=== PATIENT | female | born 1985 | race Caucasian/White ===

== ENCOUNTER 2018-06-22 12:55 | Emergency (ER) | payer SELFPAY ==
[2018-06-22 13:33] LABS: BASO % 0.5 % (0.0-2.0); EOS # 0.5 (0.0-0.7); GRAN # 4.4 (1.4-6.5); GRAN % 52.3 % (42.2-75.2); HEMOGLOBIN 11.7 g/dl (12.5-16.0); LYMPH # 2.8 (1.2-3.4); MEAN CELL VOLUME 87 fl (80.0-100.0); MEAN CORPUSCULAR HEMOGLOBIN 29 pg (27.0-31.0); MEAN CORPUSCULAR HGB CONC 33 g/dl (33.0-37.0); MEAN PLATELET VOLUME 10.1 fl (7.4-10.4); MONO # 0.7 (0.1-0.6); MONO % 8.1 % (1.7-9.3); PLATELET COUNT 278 K/mm3 (130-400); RED BLOOD COUNT 4.03 M/mm3 (4.10-5.30)
[2018-06-22 13:35] LABS: HEMATOCRIT 35.1 % (37.0-47.0)
[2018-06-22 13:38] LABS: PROTHROMBIN TIME 11.7 SECONDS (9.7-12.8)
[2018-06-22 13:45] LABS: ALANINE AMINOTRANSFERASE 28 U/L (9-52); ALBUMIN 3.9 gm/dL (3.5-5.0); ALKALINE PHOSPHATASE 72 U/L (50-136); ANION GAP 6 mmol/L (7-16); AST,SGOT 21 U/L (15-37); BILIRUBIN,TOTAL 1.1 mg/dL (0.0-1.0); BLOOD UREA NITROGEN 11 mg/dL (7-17); CALCIUM 8.8 mg/dL (8.4-10.2); CARBON DIOXIDE 26 mmol/L (22-30); CHLORIDE 105 mmol/L (98-107); CREATININE, serum 0.89 mg/dL (0.52-1.25); GLUCOSE 78 mg/dL (74-106); POTASSIUM 3.9 mmol/L (3.4-5.0); SODIUM 137 mmol/L (137-145); TOTAL PROTEIN 7.1 gm/dL (6.4-8.2)
[2018-06-22 13:58] LABS: TROPONIN-I < 0.012 ng/mL (0.000-0.034)
[2018-06-22 14:20] VITALS: BP 116/50; TEMP 97.5
[2018-06-22 16:40] VITALS: PULSE 89
== END 2018-06-22 16:40 | disposition home or self-care (01) ==
LOC: COL.ER 12:55
PROVIDERS: Emergency Medicine
DX: R51 Headache (principal)
CPT/HCPCS: J1200; J2765; J3010; Q9967

== ENCOUNTER → 2021-11-13 | Outpatient (CLI) | payer SELFPAY | LOC: COL.RAD 16:26 | DX: G43.009 Migraine without aura, not intractable, without status migrainosus (principal) ==

== ENCOUNTER 2022-10-25 10:54 | Emergency (ER) | payer SELFPAY ==
[~2022-10-25] VITALS: Ht 160 cm; Wt 70.5 kg
[2022-10-25 11:46] LABS: COLLECTION METHOD CLEAN CATCH
[2022-10-25 11:52] LABS: BASO % 0.4 % (0.0-2.0); EOS # 0.1 K/mm3 (0.0-0.7); EOS % 1.4 % (0.0-4.0); GRAN # 6.4 K/mm3 (1.4-6.5); GRAN % 82.5 % (42.2-75.2); HEMATOCRIT 39.3 % (37.0-47.0); HEMOGLOBIN 13.3 g/dl (12.5-16.0); LYMPH # 0.8 K/mm3 (1.2-3.4); LYMPH % 10.1 % (20.0-51.0); MEAN CELL VOLUME 90 fl (80.0-100.0); MEAN CORPUSCULAR HEMOGLOBIN 31 pg (27-31); MEAN CORPUSCULAR HGB CONC 34 g/dl (33.0-37.0); MEAN PLATELET VOLUME 9.7 fl (7.4-10.4); MONO # 0.4 K/mm3 (0.1-0.6); MONO % 5.3 % (1.7-9.3); PLATELET COUNT 273 K/mm3 (130-400); RED BLOOD COUNT 4.35 M/mm3 (4.10-5.30)
[2022-10-25 11:55] LABS: MUCOUS Present (NOT PRESENT); PH 5.5 (5.0-8.5); SQUAMOUS EPITHELIAL >50 /hpf (0-10); URINE APPEARANCE Cloudy (CLEAR/HAZY); URINE BACTERIA Rare /hpf (NONE SEEN); URINE COLOR Yellow (YELLOW); URINE GLUCOSE Negative (NEGATIVE); URINE PROTEIN(semi-quant) 1+ (NEGATIVE)
[2022-10-25 11:56] LABS: URINE BLOOD 2+ (NEGATIVE); URINE KETONE TRACE (NEGATIVE); URINE NITRATE Negative (NEGATIVE); URINE UROBILINOGEN 0.2 E.U/dL (0.2-1.0)
[2022-10-25 12:16] LABS: ALBUMIN 3.5 gm/dL (3.5-5.0); BILIRUBIN,TOTAL 0.8 mg/dL (0.2-1.2); CREATININE, serum 0.71 mg/dL (0.57-1.11); POTASSIUM 3.6 mmol/L (3.5-4.5); TOTAL PROTEIN 7.1 gm/dL (6.2-8.1)
[2022-10-25] MEDS ORDERED: NORCO 325 MG-51 TAB PO (13:18)
[2022-10-25] MEDS ORDERED: AMOXICILLIN 8751 TAB PO (13:18)
[2022-10-25] MEDS ORDERED: ZOFRAN ODT4 MG PO (13:18)
[2022-10-25 13:43] VITALS: BP 114/82; PULSE 92; TEMP 98
== END 2022-10-25 13:41 | disposition home or self-care (01) ==
LOC: COL.ER 10:54
PROVIDERS: Emergency Medicine
DX: K52.9 Noninfective gastroenteritis and colitis, unspecified (principal); D28.2 Benign neoplasm of uterine tubes and ligaments; R03.1 Nonspecific low blood-pressure reading
CPT/HCPCS: J1170; J2270; J2405; J7030; Q9967

== ENCOUNTER 2022-10-27 21:54 | Emergency (ER) | payer SELFPAY ==
[~2022-10-27] VITALS: Ht 160 cm; Wt 70.5 kg
[~2022-10-27 21:54] MED LIST: AMOXICILLIN 8751 TAB PO; NORCO 325 MG-51 TAB PO; ZOFRAN ODT4 MG PO
[2022-10-27 23:05] LABS: COLLECTION METHOD CLEAN CATCH
[2022-10-27 23:09] LABS: BASO % 0.5 % (0.0-2.0); EOS # 0.7 K/mm3 (0.0-0.7); EOS % 11.8 % (0.0-4.0); GRAN # 2.4 K/mm3 (1.4-6.5); GRAN % 40.6 % (42.2-75.2); HEMOGLOBIN 11.5 g/dl (12.5-16.0); LYMPH # 2.2 K/mm3 (1.2-3.4); MEAN CELL VOLUME 90 fl (80.0-100.0); MEAN CORPUSCULAR HEMOGLOBIN 31 pg (27-31); MEAN CORPUSCULAR HGB CONC 34 g/dl (33.0-37.0); MEAN PLATELET VOLUME 9.6 fl (7.4-10.4); MONO # 0.6 K/mm3 (0.1-0.6); MONO % 9.9 % (1.7-9.3); PLATELET COUNT 265 K/mm3 (130-400); RED BLOOD COUNT 3.77 M/mm3 (4.10-5.30)
[2022-10-27 23:15] LABS: PH 7.5 (5.0-8.5); URINE APPEARANCE Clear (CLEAR/HAZY); URINE BLOOD TRACE-LYSED (NEGATIVE); URINE COLOR Yellow (YELLOW); URINE GLUCOSE Negative (NEGATIVE); URINE KETONE Negative (NEGATIVE); URINE NITRATE Negative (NEGATIVE); URINE PROTEIN(semi-quant) Negative (NEGATIVE); URINE UROBILINOGEN 0.2 E.U/dL (0.2-1.0)
[2022-10-27 23:15] LABS: HEMATOCRIT 33.9 % (37.0-47.0)
[2022-10-27 23:16] LABS: MUCOUS Present (NOT PRESENT); URINE BACTERIA None Seen /hpf (NONE SEEN)
[2022-10-27 23:20] LABS: INR 1.1 (0.8-3.0); PROTHROMBIN TIME 12.3 SECONDS (9.7-12.8)
[2022-10-27 23:27] LABS: ALBUMIN 3.5 gm/dL (3.5-5.0); BILIRUBIN,TOTAL 0.4 mg/dL (0.2-1.2); C-REACTIVE PROTEIN 3.38 mg/dL (0.00-0.50); CALCIUM 9.3 mg/dL (8.4-10.2); CREATININE, serum 0.7 mg/dL (0.57-1.11); POTASSIUM 3.9 mmol/L (3.5-4.5); TOTAL PROTEIN 6.9 gm/dL (6.2-8.1)
[2022-10-28] VITALS: TEMP 98.1
[2022-10-28] MEDS ORDERED: ROXICODONE 55 MG/TAB PO (00:22)
[2022-10-28 00:41] VITALS: BP 108/71; PULSE 67
== END 2022-10-28 00:42 | disposition home or self-care (01) ==
LOC: COL.ER 21:54
PROVIDERS: Emergency Medicine
DX: K52.9 Noninfective gastroenteritis and colitis, unspecified (principal); D25.9 Leiomyoma of uterus, unspecified; Z20.822 Contact with and (suspected) exposure to COVID-19
CPT/HCPCS: J2270; J2765; J7030; Q9967

== ENCOUNTER → 2022-11-11 | Outpatient (CLI) | payer SELFPAY ==
[~2022-11-11] MED LIST changes: +ROXICODONE 55 MG/TAB PO
== END ==
LOC: COL.RAD 08:31
DX: N85.8 Other specified noninflammatory disorders of uterus (principal); R10.9 Unspecified abdominal pain